=== PATIENT | female | born 1950 | race Caucasian/White ===

== ENCOUNTER 2016-11-13 11:17 | Outpatient (CLI) | payer MEDICARE, OTHER ==
[2016-11-13 11:34] LABS: BASOPHILS % 0.6 (0.0-1.5); EOSINOPHILS % 2.3 % (0.0-6.8); LYMPHOCYTES # 1.8 # k/uL (0.6-4.0); MONOCYTES # 0.3 # k/uL (0.0-0.9); MONOCYTES % 4.8 % (0.0-11.0); NEUTROPHILS # 4.4 # k/uL (1.4-7.7)
== END 2016-11-13 11:20 ==
LOC: LAB 11:17
PROVIDERS: ATTEND Family Medicine
DX: D50.9 Iron deficiency anemia, unspecified (principal); E03.9 Hypothyroidism, unspecified
CPT/HCPCS: 36415; 84443; 85025

== ENCOUNTER 2017-01-19 09:25 | Outpatient (CLI) | payer MEDICARE, OTHER ==
[2017-01-19 10:13] LABS: eGFR (African) > 60; eGFR (Non-African) > 60
== END 2017-01-19 09:26 ==
LOC: LAB 09:25
PROVIDERS: ATTEND Family Medicine
DX: I10 Essential (primary) hypertension (principal)
CPT/HCPCS: 36415; 80048

== ENCOUNTER 2017-02-13 17:07 | Outpatient (CLI) | payer MEDICARE, OTHER ==
[2017-02-13 17:48] LABS: BASOPHILS % 0.4 (0.0-1.5); EOSINOPHILS % 2.9 % (0.0-6.8); MEAN CORPUSCULAR HEMOGLOBIN 31.2 pg (28.0-34.0); MEAN CORPUSCULAR VOLUME 95.3 fl (80.0-100.0); NEUTROPHILS # 3.4 # k/uL (1.4-7.7)
[2017-02-13 17:57] LABS: eGFR (African) > 60; eGFR (Non-African) > 60
[2017-02-13 23:11] LABS: IRON SERUM 50 ug/dL (37-145)
== END 2017-02-13 17:08 ==
LOC: LAB 17:07
PROVIDERS: ATTEND Family Medicine
DX: D50.9 Iron deficiency anemia, unspecified (principal); Z51.81 Encounter for therapeutic drug level monitoring
CPT/HCPCS: 36415; 80053; 82607; 82746; 83540; 85025

== ENCOUNTER 2018-04-24 09:01 | Outpatient (CLI) | payer MEDICARE, OTHER | END 2018-04-24 09:02 | LOC: LABRHC 09:01 | PROVIDERS: ATTEND Family Medicine | DX: N39.0 Urinary tract infection, site not specified (principal) | CPT/HCPCS: 87086 ==

== ENCOUNTER 2018-05-28 16:03 | Outpatient (CLI) | payer MEDICARE, OTHER | END 2018-05-28 16:04 | LOC: LABRHC 16:03 | PROVIDERS: ATTEND Physician Assistant | DX: R39.15 Urgency of urination (principal) | CPT/HCPCS: 87086 ==

== ENCOUNTER 2018-07-12 08:07 | Outpatient (CLI) | payer MEDICARE, OTHER ==
[2018-07-12 08:50] LABS: BASOPHILS % 0.6 (0.0-1.5); EOSINOPHILS % 3.4 % (0.0-6.8); MEAN CORPUSCULAR HEMOGLOBIN 29.9 pg (28.0-34.0); MONOCYTES % 4.5 % (0.0-11.0); NEUTROPHILS # 3.1 # k/uL (1.4-7.7)
[2018-07-12 09:42] LABS: eGFR (Non-African) > 60
== END 2018-07-12 08:15 ==
LOC: LAB 08:07
PROVIDERS: ATTEND Family Medicine
DX: E78.00 Pure hypercholesterolemia, unspecified (principal); E03.9 Hypothyroidism, unspecified; I10 Essential (primary) hypertension
CPT/HCPCS: 36415; 80053; 80061; 84443; 85025